=== PATIENT | female | born 1975 | race Caucasian/White ===

== ENCOUNTER 2016-07-26 05:17 | Inpatient (IN) | payer OTHER ==
[2016-07-23 16:00] VITALS: BMI 38.0
[~2016-07-26] VITALS: Ht 172.7 cm; Wt 115.2 kg
[2016-07-26] VITALS (21 sets, daily range): BP systolic 105–153; BP diastolic 62–84; PULSE 74–118; RESP 18–30; Ht 172.7 cm; Wt 115.2 kg
[2016-07-26] MEDS ORDERED: CHOL400C PO (05:58)
[2016-07-26] MEDS ORDERED: CALC-67 PO (05:58)
[2016-07-26] MEDS ORDERED: HYDR-906 PO (05:58)
[2016-07-26] MEDS ORDERED: OMEG10006 PO (05:58)
--- NOTE | 2016-07-26 06:19 | HPN ---
Date/Time of Note Date/Time of Note DATE: 07/26/16 TIME: 06:19 Interval H&P Admission Note Pt. seen H&P reviewed: No system changes GISSELLE BURGOS MD Jul 26, 2016 06:19
[2016-07-26] MEDS ORDERED: ROPIVACAINE 0.5 % 30 ML VIAL ONE ×3 (06:47→11:25)
[2016-07-26] MEDS ORDERED: POVIDONE IODINE 10% 28.4 GM OINT ONE (06:55)
[2016-07-26] MEDS ORDERED: POLYMYXIN/BACITRACIN 1L IRRIG ONE (06:55)
[2016-07-26] MEDS ORDERED: THROMBIN 5000 UNIT VIAL ONE ×2 (06:55→08:13)
[2016-07-26] MEDS ORDERED: GELATIN SIZE 100 SPONGE ONE ×2 (06:55→08:13)
[2016-07-26] MEDS ORDERED: NEOSTIGMINE 3 MG/3 ML SYRINGE ONE ×2 (07:06→07:37)
[2016-07-26] MEDS ORDERED: SUCCINYLCHOLINE CHLORIDE 100 MG/5 ML SYG IV ONE (07:06)
[2016-07-26] MEDS ORDERED: GLYCOPYRROLATE 1 MG INJ ONE (07:06)
[2016-07-26] MEDS ORDERED: ROCURONIUM 50 MG INJ ONE ×3 (07:06→10:37)
[2016-07-26] MEDS ORDERED: PROPOFOL 20 ML ONE (07:06)
[2016-07-26] MEDS ORDERED: LIDOCAINE 2% (SDV) 5 ML INJ ONE (07:06)
[2016-07-26] MEDS ORDERED: CEFAZOLIN 1 GM INJ ONE (07:37)
[2016-07-26] MEDS ORDERED: METOCLOPRAMIDE 10 MG INJ ONE (07:41)
[2016-07-26] MEDS ORDERED: ONDANSETRON 4 MG INJ ONE (07:41)
[2016-07-26] MEDS ORDERED: LABETALOL HCL 20MG INJ ONE (08:32)
[2016-07-26] MEDS ORDERED: LABETALOL HCL 20MG INJ IV PRN (10:00)
[2016-07-26] MEDS ORDERED: DIPHENHYDRAMINE 50 MG INJ IV PRN (10:00)
[2016-07-26] MEDS ORDERED: FENTAnyl 50 MCG/ML VIAL IV PRN (10:00)
[2016-07-26] MEDS ORDERED: MIDAZOLAM 1 MG/ML 2 ML INJ IV PRN (10:00)
[2016-07-26] MEDS ORDERED: ONDANSETRON 4 MG INJ IV PRN ×2 (10:00→12:00)
[2016-07-26] MEDS ORDERED: HYDROmorphONE (0.2 MG/ML) 10ML SYG IV PRN ×2 (10:00)
[2016-07-26] MEDS ORDERED: METOCLOPRAMIDE 10 MG INJ IV PRN (10:00)
[2016-07-26] MEDS ORDERED: MEPERIDINE 25 MG INJ IV PRN (10:00)
[2016-07-26] MEDS ORDERED: EPHEDrine SULFATE 50 MG/5 ML SYG IV PRN (10:00)
[2016-07-26] MEDS ORDERED: morphine (1 MG/ML) 10ML SYRINGE IV PRN ×2 (10:00)
[2016-07-26] MEDS ORDERED: hydrALAzine 20 MG INJ IV PRN (10:00)
[2016-07-26] MEDS: FENTAnyl 50 MCG/ML VIAL IV PRN ×2 (11:55→12:06)
[2016-07-26] MEDS ORDERED: DIPHENHYDRAMINE 25 MG CAP PO PRN (12:00)
[2016-07-26] MEDS ORDERED: HYDROmorphONE 0.2 MG/ML PCA IV SCH (12:00)
[2016-07-26] MEDS ORDERED: CEFAZOLIN 1 GM INJ IV SCH (12:00)
[2016-07-26] MEDS ORDERED: BISACODYL 10 MG SUPP PR PRN (12:00)
--- NOTE | 2016-07-26 13:48 | OPR ---
DATE OF OPERATION: 07/26/2016 PREOPERATIVE DIAGNOSES: 1. Status post Lisfranc fracture dislocation, right foot. 2. Status post open reduction internal fixation with hardware removal. 3. Degenerative joint disease of the first, second, and third metatarsocuneiform joints. POSTOPERATIVE DIAGNOSES: 1. Status post Lisfranc fracture dislocation, right foot. 2. Status post open reduction internal fixation with hardware removal. 3. Degenerative joint disease of the first, second, and third metatarsocuneiform joints. OPERATIONS PERFORMED: 1. Revision arthrodesis of the right first metatarsocuneiform joint. 2. Arthrodesis of the second metatarsocuneiform joint. 3. Arthrodesis of the first and second metatarsals. 4. Arthrodesis of the medial and middle cuneiforms. 5. Arthrodesis of the third metatarsocuneiform joint. 6. Insertion of iliac crest bone graft and Ignite and Augment to the arthrodesis sites. 7. Use of fluoroscopy to verify position and alignment of our guide pins and screws and plates. 8. Short-leg cast. Extremely complex difficult procedure because the patient has had 2 failed previous surgeries. In a ddition, the anatomy was altered and quite scarred and adhesed, making the surgery much more difficu lt to do. Furthermore, the patient's BMI was 39, making it much more difficult to perform the proce dures. Because of this, necessitated an additional 60 minutes of operative time (2200). SURGEON: Gisselle Russo MD [employer] FIELD AGENT: Jacinta Euceda MD ANESTHESIA: General with popliteal block. TOURNIQUET TIME: 135 minutes. DESCRIPTION OF PROCEDURE: The patient taken to the operating room, placed in supine position. Sati sfactory general anesthesia administered after popliteal block was given, 2 grams Ancef given intrav enously. The right lower extremity was prepped and draped in the usual manner. Attention was turne d to the iliac crest bone graft first. Incision was made by pulling up the patient's fatty tissue over the iliac crest. Dissection carried down to subcutaneous tissue, it was quite deep, and eventually got down the fascia we split it and opened in line with its fibers, elevated the muscle off the inside and outer tables of the iliac cre st. A saw was used to make 2 vertical cuts and 1 longitudinal cut. We flapped opened a trap door i n the iliac crest using different angled curettes. Bone graft was removed. Bone marrow aspirate wa s removed with a syringe. There was abundant amount of bone graft. Once we had enough, the wounds were irrigated with antibiotic solution and packed with thrombin-soaked Gelfoam. A sterile dressing was applied. Gloves were then changed. All new instruments were used. Tourniquet was inflated to 275 mmHg. Inci babs was made through the previous first metatarsal interspace incision. Dissection carried down to subcutaneous tissue. Extensive scarring of the first interspace. Extreme care was taken to free u p all the scar and expose the first metatarsocuneiform joint, the second metatarsocuneiform joint, a nd the first and second metatarsocuneiform spaces. Using a laminar ram press operator, all the articular cart ilage was removed from the first metatarsocuneiform joint space. Curet was used to remove the carti joshua as well as an osteotome and a rongeur. A bur was used to remove a small amount of bone on each side and then multiple "spot welds" were made on the articular surfaces to facilitate healing. Mul tiple drill holes were made with 0.045 K-wire on both sides. Once this had been prepared, our atten tion was turned to the second metatarsocuneiform joint which was widely shifted and arthritic as wel l. In a similar manner, the articular surfaces were removed of all articular material, and then pre pared with a bur and drill. The second metatarsal space was debrided with curets and a bur and dril l holes, and then medial to the middle cuneiform space was also prepared with a bur and a rongeur, a nd multiple drill holes were made. After all had been carefully prepared read for fusion, the incis ion was closed with #1 black nylon temporarily. Incision was then made over the third interspace. Dissection carried down to subcutaneous tissue. The scarring was elevated off the third metatarsocu neiform joint. We verified repeatedly throughout our procedure with the fluoroscope that we were in the correct spaces each time, both AP and lateral positions. The third metatarsocuneiform joint wa s distracted. All the articular cartilage was removed with a curet and rongeur and then burred and then multiple spot welds were made. The wounds were irrigated repeatedly with antibiotic solution. Blood was drawn sterilely from the patient and mixed with the Ignite in a syringe. Augment was add ed to the bone graft that we obtained. The bone graft was placed in all of the fusion sites 1, 2, a nd 3, and then some of the Ignite was placed. The first metatarsocuneiform joint was reduced and fi xed with a guide pin from the 4.0 AO cannulated screw set. A U-plate was then placed on the 1st and 2nd metatarsocuneiform joints and across the cuneiforms. It was fixated with reducing the second m etatarsal to the cuneiform. Screws were then applied and the plate was then distracted. It was a U -claw plate from [employer]. Excellent fixation was obtained. The area was very stable. The s crew was then drilled, and screw was inserted obliquely across the first metatarsocuneiform joint. We checked repeatedly to make sure the screws were correct lengths and did not violate the navicular cuneiform joints. Third intermetatarsal was bone grafted and Ignite was inserted. A small 2-hole plate claw plate was then inserted, checked under fluoroscopy, and then compressed. Further bone gr aft was placed in all the areas. The tourniquet was then released. Final fluoroscopic views in AP and lateral directions showed good position and alignment of the screws and plates with excellent co mpression across the arthrodesis sites. The deep layer was closed in the first interspace with a ru nning 3-0 PDS. Subcutaneous tissue was closed with 3-0 undyed Vicryl and skin with 4-0 black nylon, 3-0 undyed Vicryl was used to close the space the muscle, and the third interspace, and then 3-0 un dyed Vicryl was used to close subcutaneous tissue, and 4-0 black nylon was used to close the skin. The bone graft site was irrigated clear. All thrombin-soaked Gelfoam was removed. The trap door wa s reduced back in place after inserting the remaining Ignite into the iliac crest. The fascia was c losed with a running 0 PDS, subcutaneous tissue closed with 2-0 and 3-0 undyed Vicryl, and the skin was closed with a running 3-0 subcuticular Prolene. Steri-Strips were applied and a compression marlon ssing was applied on the foot and ankle; however, prior to doing this, the hip and the foot and ankl e were injected with 0.5% ropivacaine, then a compression dressing was placed on the right lower ext remity in a short-leg cast in neutral position. At the end of procedure, the sponge and needle coun t was correct. The patient tolerated the procedure well and was taken to the recovery room in stabl e condition. Dictated By: GISSELLE ALLRED/TIFFANIE Conf#: [id number] DID#: [id number]
[2016-07-26] MEDS ORDERED: CEFAZOLIN 2 GM/50 ML (PMX) 50 ML IVPB SCH (14:00)
[2016-07-26] MEDS: OXYCODONE/ACETAMINOPHEN (5/325) TAB PO PRN ×3 (14:19→22:50)
--- NOTE | 2016-07-26 14:27 | RADRPT ---
PROCEDURE: Intraoperative imaging of the right foot with fluoroscopy. CLINICAL INDICATION: Right foot pain. Intraoperative. TECHNIQUE: 3 images of the right foot were obtained in the operating room with an image intensifie r. No radiologist was in attendance. 31.3 seconds of fluoroscopy time was used. COMPARISON: No prior study is available for comparison. FINDINGS: Images demonstrate surgical fusion of the first, second, and third tarsal-metatarsal joints with ext ensive hardware. IMPRESSION: 1. Intraoperative imaging of the right foot. RPTAT: QQ .Ricco Summers MD, MD Date Time Electronically viewed and signed by .Ricco Summers MD, MD on 07/26/2016 14:27 .R/
[2016-07-26] MEDS: SOD CHLORIDE 0.9% 1,000 ML IV SCH ×2 (15:25→22:51)
[2016-07-26] MEDS: CEFAZOLIN 2 GM in SOD CHLORIDE 0.9% 50 ML IVPB SCH ×2 (17:32→22:50)
[2016-07-26] MEDS: morphine 10 MG INJ IV PRN (19:11)
--- NOTE | 2016-07-26 20:14 | OPR ---
DATE OF OPERATION: 07/26/2016 ADDENDUM DIRECTORY ASSISTANCE OPERATOR ORTHOPEDIC SURGEON: During the procedure, an patient care assistant orthopedic surgeon was used at my request. The patient care assistant helped with exposure. The patient care assistant also helped with inserting the screws w aric Garcia reduced the metatarsals into the cuneiform joints. Without a skilled patient care assistant being present , this could not have been performed appropriately and, therefore, should be compensated as such in symptoms. Dictated By: GISSELLE ALLRED/TIFFANIE Conf#: [id number] DID#: [id number]
[2016-07-26] MEDS: HYDROmorphONE 0.2 MG/ML PCA IV SCH (20:32)
[2016-07-26] MEDS: SENNA/DOCUSATE NA (8.6MG/50MG) TAB PO SCH (20:36)
[2016-07-26] MEDS ORDERED: ENOXAPARIN 30 MG/0.3 ML SYG SC SCH (21:00)
[2016-07-27] VITALS: BP 124/59; RESP 16
[2016-07-27] MEDS: morphine 10 MG INJ IV PRN ×4 (01:20→20:19)
[2016-07-27] MEDS: OXYCODONE/ACETAMINOPHEN (5/325) TAB PO PRN ×4 (05:03→22:53)
[2016-07-27] MEDS: HYDROmorphONE 0.2 MG/ML PCA IV SCH ×3 (05:08→19:26)
--- NOTE | 2016-07-27 07:37 | PN ---
Date/Time of Note Date/Time of Note DATE: 07/27/16 TIME: 07:34 Assessment/Plan VTE Prophylaxis VTE Prophylaxis Intervention: ambulation, other (xarleto) Lines/Catheters IV Catheter Type (from Nrsg): Peripheral IV Central line still needed: No Urinary Cath still in place: No Assessment/Plan Chief Complaint/Hosp Course POD1 s/p right 1, 2, 3rd MTC fusion with right sided ICBG Problems: Assessment/Plan 1. Pain control : wean PARK AIDE to PO pain medications 2. PT/OT: NWB RLE, work with patient today 3. DVT PPX: Xarelto 4. Dispo: pending oral pain control and PT clearance, ok to dispo when both met Subjective 24 Hr Interval Summary Musculoskeletal: other (ankle/foot pain) Exam/Review of Systems Vital Signs Vitals Vital Signs Date Time Temp Pulse Resp B/P Pulse Ox O2 Delivery O2 Flow Rate FiO2 07/27/16 04:50 18 07/27/16 00:00 98.4 90 124/59 99 07/26/16 20:30 Room Air 07/26/16 12:18 2.0 Intake and Output 07/26/16 07/26/16 07/27/16 15:00 23:00 07:00 Intake Total 800 ml 950 ml 2550 ml Output Total 20 ml 900 ml 1200 ml Balance 780 ml 50 ml 1350 ml Exam Constitutional: alert, oriented Musculoskeletal: other (RLE with TTP. unable to extend toes today. Sensation grossly intact over toes. Brisk cap refill. Mild serosanguinous soakthrough over cast) Medications Medications Current Medications Senna/Docusate Sodium (Senokot-S) 1 tab BID PO ; Start 07/26/16 at 21:00 Magnesium Hydroxide (Milk Of Mag) 30 ml HS PO ; Start 07/28/16 at 21:00 Bisacodyl 10 mg 10 mg DAILY PRN ID CONSTIPATION; Start 07/26/16 at 12:00 Sodium Chloride (NS) 1,000 ml @ 100 mls/hr Q10H IV Last administered on 22:51; Admin Dose 100 MLS/HR; Start 07/26/16 at 11:49 Oxycodone/ Acetaminophen (Percocet (5/ 325)) 2 tab Q4H PRN PO PAIN Last administered on 07/27/16 05:03; Admin Dose 2 TAB; Start 07/26/16 at 12:00 Morphine Sulfate (morphine) 5 mg Q4H PRN IV PAIN LEVEL 7-10 Last administered on 07/27/16 01:20; Admin Dose 5 MG; Start 07/26/16 at 12:00 Ondansetron HCl (Zofran Inj) 4 mg Q4H PRN IV NAUSEA AND/OR VOMITING; Start 02/01 at 12:00 Diphenhydramine HCl (Benadryl) 25 mg Q4H PRN PO ITCHING; Start 07/26/16 at 12: 00 Hydromorphone HCl MG/HR CONTINUOUS RATE ... Q4PCA IV Last administered on 05:08; Admin Dose 6 MG; Start 07/26/16 at 13:00 Cefazolin Sodium/ Sodium Chloride (Ancef/NS) 50 ml @ 50 mls/hr Q8H IVPB Last administered on 07/26/16 22:50; Admin Dose 50 MLS/HR; Start 07/26/16 at 15:00; Stop 07/28/16 at 07:59 GISSELLE BURGOS MD Jul 27, 2016 07:36
[2016-07-27] MEDS: CEFAZOLIN 2 GM in SOD CHLORIDE 0.9% 50 ML IVPB SCH ×3 (07:58→22:50)
[2016-07-27 08:14] VITALS: BP 111/59; RESP 18
[2016-07-27] MEDS: SENNA/DOCUSATE NA (8.6MG/50MG) TAB PO SCH ×2 (09:08→20:19)
[2016-07-27] MEDS: SOD CHLORIDE 0.9% 1,000 ML IV SCH ×2 (09:10→18:39)
[2016-07-27] MEDS: RIVAROXABAN 10 MG TABLET PO SCH (18:39)
[2016-07-27 19:53] VITALS: BP 116/53; RESP 18
[2016-07-28] MEDS: morphine 10 MG INJ IV PRN ×4 (00:40→19:52)
[2016-07-28] MEDS: HYDROmorphONE 0.2 MG/ML PCA IV SCH (01:38)
[2016-07-28] MEDS: OXYCODONE/ACETAMINOPHEN (5/325) TAB PO PRN (03:23)
[2016-07-28] MEDS: SOD CHLORIDE 0.9% 1,000 ML IV SCH (03:54)
--- NOTE | 2016-07-28 06:14 | PN ---
Date/Time of Note Date/Time of Note DATE: 07/28/16 TIME: 06:11 Assessment/Plan VTE Prophylaxis VTE Prophylaxis Intervention: ambulation, other (Xarelto) Lines/Catheters IV Catheter Type (from Nrsg): Saline Lock Central line still needed: No Urinary Cath still in place: No Assessment/Plan Chief Complaint/Hosp Course POD2 s/p right 1, 2, 3rd MTC fusion with right sided ICBG Problems: Assessment/Plan 1. Pain control: D/c SYSTEMS CONSULTANT today. Will increase Percocet to 10mg, 1-2 tablets, PO, q 4hours PRN and add MS Contin 15 BID. 2. DVT PPX: Xarelto 3. PT/OT - NWB RLE 4. Nursing to change dressing over iliac crest 5. D/c home today pending pain control and PT clearance. Subjective 24 Hr Interval Summary Subjective hx not possible: other (Pain very poorly controlled. Unable to move in bed. Still using SYSTEMS CONSULTANT. ) Exam/Review of Systems Vital Signs Vitals Vital Signs Date Time Temp Pulse Resp B/P Pulse Ox O2 Delivery O2 Flow Rate FiO2 07/28/16 05:05 18 07/27/16 19:53 97.9 101 116/53 99 07/26/16 20:30 Room Air 07/26/16 12:18 2.0 Intake and Output 07/27/16 07/27/16 07/28/16 15:00 23:00 07:00 Intake Total 50 ml 1650 ml 1010 ml Output Total 700 ml 1400 ml Balance 50 ml 950 ml -390 ml Exam Constitutional: alert, oriented Respiratory: other (NLWOB) Cardiovascular: regular rate and rhythm Musculoskeletal: other (Cast with mild ss soakthrough. Hip dressing CDI. Able to wiggle toes. Complaining of pain. Brisk cap refill. ) Medications Medications Current Medications Senna/Docusate Sodium (Senokot-S) 1 tab BID PO Last administered on 07/27/16t 20:19; Admin Dose 1 TAB; Start 07/26/16 at 21:00 Magnesium Hydroxide (Milk Of Mag) 30 ml HS PO ; Start 07/28/16 at 21:00 Bisacodyl 10 mg 10 mg DAILY PRN ND CONSTIPATION; Start 07/26/16 at 12:00 Sodium Chloride (NS) 1,000 ml @ 50 mls/hr Q20H IV Last administered on 18:39; Admin Dose 100 MLS/HR; Start 07/26/16 at 11:49 Oxycodone/ Acetaminophen (Percocet (5/ 325)) 2 tab Q4H PRN PO PAIN Last administered on 07/28/16 03:23; Admin Dose 2 TAB; Start 07/26/16 at 12:00 Morphine Sulfate (morphine) 5 mg Q4H PRN IV PAIN LEVEL 7-10 Last administered on 07/28/16 05:02; Admin Dose 5 MG; Start 07/26/16 at 12:00 Ondansetron HCl (Zofran Inj) 4 mg Q4H PRN IV NAUSEA AND/OR VOMITING; Start 02/01 at 12:00 Diphenhydramine HCl (Benadryl) 25 mg Q4H PRN PO ITCHING; Start 07/26/16 at 12: 00 Hydromorphone HCl MG/HR CONTINUOUS RATE ... Q4PCA IV Last administered on 01:38; Admin Dose 6 MG; Start 07/26/16 at 13:00 Cefazolin Sodium/ Sodium Chloride (Ancef/NS) 50 ml @ 50 mls/hr Q8H IVPB Last administered on 07/27/16 22:50; Admin Dose 50 MLS/HR; Start 07/26/16 at 15:00; Stop 07/28/16 at 07:59 GISSELLE BURGOS MD Jul 28, 2016 06:14
[2016-07-28] MEDS ORDERED: OXYCODONE/ACETAMINOPHEN (10/325) TAB PO PRN (06:30)
[2016-07-28] MEDS: OXYCODONE/ACETAMINOPHEN (10/325) TAB PO PRN ×3 (06:45→16:06)
[2016-07-28] MEDS: CEFAZOLIN 2 GM in SOD CHLORIDE 0.9% 50 ML IVPB SCH (06:54)
[2016-07-28 07:43] VITALS: BP 107/59; RESP 18
[2016-07-28] MEDS: SENNA/DOCUSATE NA (8.6MG/50MG) TAB PO SCH ×2 (08:40→19:52)
[2016-07-28] MEDS: morphine (ER) 15 MG TAB PO SCH ×2 (08:40→20:40)
[2016-07-28] MEDS: RIVAROXABAN 10 MG TABLET PO SCH (19:40)
[2016-07-28 20:00] VITALS: BP 122/63; PULSE 90; RESP 18
[2016-07-28] MEDS ORDERED: MAGNESIUM HYDROXIDE 30ML CUP PO SCH (21:00)
== END 2016-07-28 20:30 | disposition home or self-care (01) | DRG 505 ==
LOC: REC 05:17 → EDSTATUS 11:00 → MS1 13:01
PROVIDERS: ADMIT Orthopaedic Surgery; ATTEND Orthopaedic Surgery
PROC: 0SGK07Z Fusion of Right Tarsometatarsal Joint with Autologous Tissue Substitute, Open Approach (ICD-10-PCS; 2016-07-26)
PROC: 0QB20ZZ Excision of Right Pelvic Bone, Open Approach (ICD-10-PCS; 2016-07-26)
PROC: 0SGK04Z Fusion of Right Tarsometatarsal Joint with Internal Fixation Device, Open Approach (ICD-10-PCS; principal; 2016-07-26 07:00)
DX: M19.171 Post-traumatic osteoarthritis, right ankle and foot (principal); E66.01 Morbid (severe) obesity due to excess calories; Z68.38 Body mass index [BMI] 38.0-38.9, adult
CPT/HCPCS: 73630; 97116; 97162; 97530; C1713; J0330; J0690; J1170; J1200; J2175; J2270; J2405; J2710; J2765; J2795; J3010; J7030